=== PATIENT | male | born 1955 | race Caucasian/White ===

== ENCOUNTER 2017-01-11 20:42 | Emergency (ER) | payer BC, OTHER ==
[2017-01-11] MEDS ORDERED: Ondansetron 4 MG/2 ML SDV IVPUSH ONE (21:00)
[2017-01-11] MEDS ORDERED: Morphine 2 MG/ML Syringe IVPUSH ONE ×2 (21:00→21:38)
[2017-01-11] MEDS ORDERED: Aspirin 81 MG Tab.Chew PO ONE (21:00)
[2017-01-11] MEDS ORDERED: Ondansetron 4 MG/2 ML SDV ONE (21:13)
[2017-01-11] MEDS ORDERED: Morphine 2 MG/ML Syringe ONE ×2 (21:13→21:38)
[2017-01-11] MEDS ORDERED: Heparin Sodium 5,000 Units/ML Vial IVPUSH ONE (21:19)
--- NOTE | 2017-01-11 21:24 | EDM.PDOC ---
ED HPI GENERAL MEDICAL PROBLEM - General Stated Complaint: CHESTPAIN Time Seen by Provider: 01/11/17 20:42 Source of Information: Reports: Patient, Family History Limitations: Reports: No Limitations - History of Present Illness INITIAL COMMENTS - FREE TEXT/NARRATIVE: 61 y.o. w m with F/H of OK, High cholesterol, quit taking his "cholesterol meds " 2 weeks ago, came by PC to the ed due to acute SSCP after supper, radiating to his left chest, nausea. Pt received 4 baby ASA and pain improved. Pt rated the pain to 4/10. Pt never smoked or drank ETOH. BP 138/87 [address] ECG [address] ST elevation inf leads, no trauma. Risk factors for OK: High cholesterol, pos family Hx, brother had OK with 41 (triple bypass) Onset: Today, Sudden Onset Date: 01/11/17 Onset Time: 19:00 Duration: Minutes: Location: Reports: Chest Quality: Reports: Ache, Burning, Dull Severity: Mild Improves with: Reports: Medication Worsens with: Reports: Movement Context: Reports: Other (chest pain at rest) Associated Symptoms: Reports: Nausea/Vomiting L anterior chest & L arm Pain Score (Numeric/FACES): 7 - Related Data Allergies Allergy/AdvReac Type Severity Reaction Status Date / Time No Known Allergies Allergy Verified 01/11/17 22:05 Home Meds: Home Meds Acetaminophen/Diphenhydramine [Tylenol Pm Ex-Strength Caplet] 2 tab BEDTIME [History] ED ROS GENERAL - Review of Systems Review Of Systems: See Below Constitutional: Reports: Fatigue HEENT: Reports: No Symptoms Respiratory: Reports: No Symptoms Cardiovascular: Reports: Chest Pain Endocrine: Reports: No Symptoms GI/Abdominal: Reports: No Symptoms : Reports: No Symptoms Musculoskeletal: Reports: No Symptoms Skin: Reports: No Symptoms Neurological: Reports: No Symptoms Psychiatric: Reports: No Symptoms Hematologic/Lymphatic: Reports: No Symptoms Immunologic: Reports: No Symptoms ED EXAM, GENERAL - Physical Exam Exam: See Below Exam Limited By: No Limitations General Appearance: Alert, WD/WN, Mild Distress, Moderate Distress Eye Exam: Bilateral Eye: Normal Inspection Ears: Normal External Exam Ear Exam: Bilateral Ear: Auricle Normal Nose: Normal Inspection, Normal Mucosa Throat/Mouth: Normal Inspection, Normal Lips Head: Atraumatic, Normocephalic Neck: Normal Inspection, Supple, Non-Tender Respiratory/Chest: No Respiratory Distress, Lungs Clear Cardiovascular: Normal Peripheral Pulses, Regular Rate, Rhythm, No Edema, No JVD , No Murmur Peripheral Pulses: 1+: Femoral (L), Femoral (R) GI/Abdominal: Normal Bowel Sounds, Soft (Male) Exam: Deferred Rectal (Males) Exam: Deferred Back Exam: Normal Inspection, Full Range of Motion Extremities: Normal Inspection, Normal Range of Motion, Non-Tender, No Pedal Edema Neurological: Alert, Oriented, CN II-XII Intact, Normal Cognition, Normal Gait Psychiatric: Normal Affect, Normal Mood Skin Exam: Warm, Dry, Normal Color, No Rash Lymphatic: No Adenopathy EKG INTERPRETATION EKG Date: 01/11/17 Time: 21:00 Rhythm: NSR Rate (Beats/Min): 56 [place]: Normal P-Wave: Present QRS: Normal ST-T: Elevated (inf leads) QT: Normal Comparison: NA - No Prior EKG EKG Interpretation Comments: inf wall OK Course - Vital Signs Text/Narrative:: 61 y.o. w m with F/H of OK, High cholesterol, quit taking his "cholesterol meds " 2 weeks ago, came by PC to the ed due to acute SSCP after supper, radiating to his left chest, nausea. Pt received 4 baby ASA and pain improved. Pt rated the pain to 4/10. Pt never smoked or drank ETOH. BP 138/87 Pulse 56. ECG showed ST elevation inf leads, no trauma. Risk factors for OK: High cholesterol, pos family Hx, brother had OK with 41 (triple bypass) PE: SSCP Labs: Troponin 623 troponin 0.12 Na 133 K 4.1 BUN 21 Cr 1.0 CBC WNL Imaging: CXR NAD 9.[address] Melgar, Mission Coordinator at [facility]: 4 baby ASA and 5000 units Heparin bolus, the transfer ELIAZAR Impression: Inf wall OK Tx: ASA, MS, NS, heparin bolus Reexam: Improved Plan: Transfer to [facility] immediately Last Recorded V/S: Last Vital Signs Temp 36.4 C 01/11/17 20:54 Pulse 50 L 01/11/17 20:54 Resp 16 01/11/17 21:30 BP 130/89 01/11/17 21:30 Pulse Ox 98 01/11/17 21:30 - Orders/Labs/Meds Labs: Laboratory Tests 01/11/17 01/11/17 01/11/17 Range/Units 20:55 20:55 20:55 WBC 8.8 (4.5-12.0) X10-3/uL RBC 4.81 (4.30-5.75) x10(6)uL Hgb 14.3 (11.5-15.5) g/dL Hct 41.0 (30.0-51.3) % MCV 85.3 (80-96) fL MCH 29.8 (27.7-33.6) pg MCHC 35.0 (32.2-35.4) g/dL RDW 13.0 (11.5-15.5) % Plt Count 264 (125-369) X10(3)uL MPV 8.7 (7.4-10.4) fL Neut % (Auto) 70.8 (46-82) % Lymph % (Auto) 19.8 (13-37) % [place] % (Auto) 8.1 (4-12) % Eos % (Auto) 1 (1.0-5.0) % Baso % (Auto) 0 (0-2) % Neut # (Auto) 6.3 (1.6-8.3) # Lymph # (Auto) 1.7 (0.6-5.0) # [place] # (Auto) 0.7 (0.0-1.3) # Eos # (Auto) 0.1 (0.0-0.8) # Baso # (Auto) 0.0 (0.0-0.2) # PT (8.7-11.1) INR (0.89-1.13) APTT (24.4-33.2) SECONDS Sodium 133 L (135-145) mmol/L Potassium 4.1 (3.5-5.3) mmol/L Chloride 99 L (100-110) mmol/L Carbon Dioxide 26 (23-29) mmol/L BUN 21 (8-23) mg/dL Creatinine 1.0 (0.6-1.3) mg/dL Est Cr Clr Drug Dosing TNP Estimated GFR (MDRD) > 60 (>60) BUN/Creatinine Ratio 21.0 H (9-20) Glucose 141 H (80-116) mg/dL Calcium 9.0 (8.6-10.2) mg/dL Total Bilirubin 1.7 H (0.1-1.3) mg/dL AST 37 H (5-27) IU/L ALT 30 H (14-26) IU/L Alkaline Phosphatase 52 L (56-112) IU/L Creatine Kinase 623 H* (60-160) IU/L Troponin I 0.12 H (0.02-0.06) NG/ML Total Protein 7.3 (6.0-8.0) g/dL Albumin 4.5 (3.2-4.6) g/dL Globulin 2.8 g/dL Albumin/Globulin Ratio 1.6 01/11/17 Range/Units 20:55 WBC (4.5-12.0) X10-3/uL RBC (4.30-5.75) x10(6)uL Hgb (11.5-15.5) g/dL Hct (30.0-51.3) % MCV (80-96) fL MCH (27.7-33.6) pg MCHC (32.2-35.4) g/dL RDW (11.5-15.5) % Plt Count (125-369) X10(3)uL MPV (7.4-10.4) fL Neut % (Auto) (46-82) % Lymph % (Auto) (13-37) % [place] % (Auto) (4-12) % Eos % (Auto) (1.0-5.0) % Baso % (Auto) (0-2) % Neut # (Auto) (1.6-8.3) # Lymph # (Auto) (0.6-5.0) # [place] # (Auto) (0.0-1.3) # Eos # (Auto) (0.0-0.8) # Baso # (Auto) (0.0-0.2) # PT 11.8 H (8.7-11.1) INR 1.17 H (0.89-1.13) APTT 26.8 (24.4-33.2) SECONDS Sodium (135-145) mmol/L Potassium (3.5-5.3) mmol/L Chloride (100-110) mmol/L Carbon Dioxide (23-29) mmol/L BUN (8-23) mg/dL Creatinine (0.6-1.3) mg/dL Est Cr Clr Drug Dosing Estimated GFR (MDRD) (>60) BUN/Creatinine Ratio (9-20) Glucose (80-116) mg/dL Calcium (8.6-10.2) mg/dL Total Bilirubin (0.1-1.3) mg/dL AST (5-27) IU/L ALT (14-26) IU/L Alkaline Phosphatase (56-112) IU/L Creatine Kinase (60-160) IU/L Troponin I (0.02-0.06) NG/ML Total Protein (6.0-8.0) g/dL Albumin (3.2-4.6) g/dL Globulin g/dL Albumin/Globulin Ratio Meds: Medications Discontinued Medications Generic Name Dose Route Start Last Admin Trade Name Freq PRN Reason Stop Dose Admin Aspirin 324 mg 01/11/17 21:00 01/11/17 20:50 Aspirin PO 01/11/17 21:01 324 mg ONETIME ONE Administration Heparin Sodium (Porcine) 5,000 units 01/11/17 21:19 01/11/17 21:28 Heparin Sodium IVPUSH 01/11/17 21:20 5,000 units ONETIME ONE Administration Heparin Sodium (Porcine) Confirm 01/11/17 21:25 01/12/17 04:23 Heparin Sodium Administered 01/11/17 21:26 Not Given Dose 5,000 units .ROUTE .STK-MED ONE Sodium Chloride 1,000 mls @ 125 mls/hr 01/11/17 21:45 Normal Saline IV ASDIRECTED [facility] Morphine Sulfate Confirm 01/11/17 21:13 01/12/17 04:25 Morphine Administered 01/11/17 21:14 Not Given Dose 2 mg .ROUTE .STK-MED ONE Morphine Sulfate 2 mg 01/11/17 21:38 01/11/17 21:17 Morphine IVPUSH 01/11/17 21:39 2 mg ONETIME ONE Administration Morphine Sulfate Confirm 01/11/17 21:38 01/12/17 04:25 Morphine Administered 01/11/17 21:39 Not Given Dose 2 mg .ROUTE .STK-MED ONE Morphine Sulfate 2 mg 01/11/17 21:00 01/11/17 21:39 Morphine IVPUSH 01/11/17 21:01 2 mg ONETIME ONE Administration Ondansetron HCl Confirm 01/11/17 21:13 01/12/17 04:25 Zofran Administered 01/11/17 21:14 Not Given Dose 4 mg .ROUTE .STK-MED ONE Ondansetron HCl 4 mg 01/12/17 21:00 Zofran IVPUSH 01/12/17 21:01 ONETIME ONE Ondansetron HCl 4 mg 01/11/17 21:00 01/11/17 21:16 Zofran IVPUSH 01/11/17 21:01 4 mg ONETIME ONE Administration Sodium Chloride 10 ml 01/12/17 04:28 01/11/17 21:09 Saline Flush FLUSH 10 ml ASDIRECTED PRN Administration Keep Vein Open Departure - Departure Time of Disposition: 16:00 Disposition: DC/Tfer to Acute Hospital 02 Reason for Transfer *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
[2017-01-11] MEDS ORDERED: Heparin Sodium 5,000 Units/ML Vial ONE (21:25)
[2017-01-11] MEDS ORDERED: Sodium Chloride 0.9% 1,000 ML IV SCH (21:45)
[2017-01-12] MEDS ORDERED: Sodium Chloride 0.9% 10 ML Syringe FLUSH PRN (04:28)
[2017-01-12] MEDS ORDERED: Ondansetron 4 MG/2 ML SDV IVPUSH ONE (21:00)
--- NOTE | 2017-01-13 11:44 | CR ---
INDICATION: Chest pain. CHEST: AP upright view of the chest 01/11/2017 was compared with 02/08/2010 and revealed the heart to be normal in size and shape. The aorta is somewhat tortuous with minimal calcification suggested in the arch. An active infiltrate or effusion was not identified. Overlying EKG leads are noted. IMPRESSION: 1. No acute process. 2. ASD aorta, minimal. MTDD
== END 2017-01-11 21:43 ==
LOC: FB.ED 20:42
DX: I21.11 ST elevation (STEMI) myocardial infarction involving right coronary artery (principal); E78.00 Pure hypercholesterolemia, unspecified; Z82.49 Family history of ischemic heart disease and other diseases of the circulatory system
CPT/HCPCS: 36415; 71010; 80053; 82550; 84484; 85025; 85610; 85730; 93005; 96374; 96375; 99285; A9270; J1644; J2270; J2405; J7050

== ENCOUNTER 2019-01-08 21:04 | Emergency (ER) | payer BC ==
--- NOTE | 2019-01-08 21:38 | EDM.PDOC ---
ED HPI GENERAL MEDICAL PROBLEM - General Stated Complaint: skip beats Time Seen by Provider: 01/08/19 21:05 - History of Present Illness INITIAL COMMENTS - FREE TEXT/NARRATIVE: Patient presented to the ED because of sjip beats while resting. He denies any chest pain,dizziness,dyspnea. He just want to be checked. He admits of having a lot of stress lately and has been drinking coffee more than usual. - Related Data Allergies Allergy/AdvReac Type Severity Reaction Status Date / Time No Known Allergies Allergy Verified 01/11/17 22:05 Home Meds: Home Meds Acetaminophen/Diphenhydramine [Tylenol Pm Ex-Strength Caplet] 2 tab BEDTIME [History] Past Medical History Cardiovascular History: Reports: Bypass, High Cholesterol, Hypertension, [place], Pacemaker, Stents Other Cardiovascular History: pre-hypertensive but not on meds yet. Was on Cholesterol meds but states 'they took me off them.' Respiratory History: Reports: None Gastrointestinal History: Reports: None Genitourinary History: Reports: Other (See Below) Other Genitourinary History: prostate CA Psychiatric History: Reports: Anxiety Endocrine/Metabolic History: Reports: Other (See Below) Other Endocrine/Metabolic History: prediabetic Hematologic History: Reports: None Oncologic (Cancer) History: Reports: Prostate - Infectious Disease History Infectious Disease History: Reports: Chicken Pox, Mumps - Past Surgical History HEENT Surgical History: Reports: Adenoidectomy, Tonsillectomy Cardiovascular Surgical History: Reports: Coronary Artery Bypass GI Surgical History: Reports: Appendectomy, Cholecystectomy Male Surgical History: Reports: Prostatectomy Oncologic Surgical History: Reports: Other (See Below) Other Oncologic Surgeries/Procedures: prostate removed Social & Family History - Family History Family Medical History: Noncontributory - Tobacco Use Smoking Status *Q: Never Smoker - Caffeine Use Caffeine Use: Reports: None - Recreational Drug Use Recreational Drug Use: No ED ROS GENERAL - Review of Systems Review Of Systems: See Below Constitutional: Reports: No Symptoms HEENT: Reports: No Symptoms Respiratory: Reports: No Symptoms Cardiovascular: Reports: Other (skip beats). Denies: Chest Pain, Lightheadedness Endocrine: Reports: No Symptoms GI/Abdominal: Reports: No Symptoms Neurological: Reports: No Symptoms Psychiatric: Reports: No Symptoms Hematologic/Lymphatic: Reports: No Symptoms Immunologic: Reports: No Symptoms ED EXAM, GENERAL - Physical Exam Exam: See Below Exam Limited By: No Limitations General Appearance: Alert, No Apparent Distress Ears: Normal External Exam, Normal Canal, Hearing Grossly Normal, Normal TMs Nose: Normal Inspection, Normal Mucosa, No Blood Throat/Mouth: Normal Inspection, Normal Lips, Normal Teeth, Normal Gums, Normal Oropharynx, Normal Voice Head: Atraumatic, Normocephalic Neck: Normal Inspection, Supple, Non-Tender, Full Range of Motion Respiratory/Chest: No Respiratory Distress, Lungs Clear, Normal Breath Sounds, No Accessory Muscle Use Cardiovascular: Normal Peripheral Pulses, Regular Rate, Rhythm, No Edema, No Gallop, No JVD, No Murmur, No Rub GI/Abdominal: Normal Bowel Sounds, Soft, Non-Tender, No Organomegaly Course - Vital Signs Text/Narrative:: labs,EKG reviewed with jese and his with full understanding EKG-NSR with PVC's trop neg Last Recorded V/S: Last Vital Signs Temp 36.7 C 01/08/19 22:00 Pulse 60 01/08/19 22:00 Resp 16 01/08/19 22:00 BP 125/80 01/08/19 22:00 Pulse Ox 99 01/08/19 22:00 - Orders/Labs/Meds Orders: Active Orders 24 hr Category Date Time Status EKG Documentation Completion [RC] ASDIRECTED Care 01/08/19 21:14 Active EKG 12 Lead [EK] Routine Ther 01/08/19 21:14 Ordered Labs: Laboratory Tests 01/08/19 01/08/19 01/08/19 Range/Units 21:20 21:20 21:20 WBC 6.4 (4.5-12.0) X10-3/uL RBC 4.84 (4.30-5.75) x10(6)uL Hgb 14.0 (13.5-17.8) g/dL Hct 41.9 (30.0-51.3) % MCV 86.7 (80-96) fL MCH 29.0 (27.7-33.6) pg MCHC 33.4 (32.2-35.4) g/dL RDW 13.3 (11.5-15.5) % Plt Count 203 (125-369) X10(3)uL MPV 8.8 (7.4-10.4) fL Neut % (Auto) 52.6 (46-82) % Lymph % (Auto) 36.4 (13-37) % [place] % (Auto) 8.0 (4-12) % Eos % (Auto) 2 (1.0-5.0) % Baso % (Auto) 1 (0-2) % Neut # (Auto) 3.4 (1.6-8.3) # Lymph # (Auto) 2.3 (0.6-5.0) # [place] # (Auto) 0.5 (0.0-1.3) # Eos # (Auto) 0.1 (0.0-0.8) # Baso # (Auto) 0.1 (0.0-0.2) # Sodium 139 (135-145) mmol/L Potassium 3.9 (3.5-5.3) mmol/L Chloride 105 (100-110) mmol/L Carbon Dioxide 28 (21-32) mmol/L BUN 16 (7-18) mg/dL Creatinine 1.0 (0.70-1.30) mg/dL Est Cr Clr Drug Dosing 86.56 mL/min Estimated GFR (MDRD) > 60 (>60) BUN/Creatinine Ratio 16.0 (9-20) Glucose 98 (80-116) mg/dL Calcium 8.8 (8.6-10.2) mg/dL Troponin I < 0.017 L (<0.017-0.056) ng/mL Departure - Departure Time of Disposition: 22:15 Disposition: Home, Self-Care 01 Condition: Good Clinical Impression: Skipped heart beats, PVC (premature ventricular contraction) Instructions: Premature Ventricular Contraction Referrals: Bonnie Mcdonnell MD [Primary Care Provider] - Forms: ED Department Discharge Additional Instructions: please read discharge instructions on premature ventricular contractions(PVC) and skip beats try to drink less coffee if you're under a lot of stress do some meditation and relaxation techniques on you tube make sure that your anxiety is also properly treated. If your anxiety is not well controlled you can have PVC's - My Orders Last 24 Hours: My Active Orders 01/08/19 21:14 EKG Documentation Completion [RC] ASDIRECTED EKG 12 Lead [EK] Routine - Assessment/Plan Last 24 Hours: My Active Orders 01/08/19 21:14 EKG Documentation Completion [RC] ASDIRECTED EKG 12 Lead [EK] Routine
== END 2019-01-08 22:13 | disposition home or self-care (01) ==
LOC: FB.ED 21:04
DX: I49.3 Ventricular premature depolarization (principal); R00.8 Other abnormalities of heart beat; I10 Essential (primary) hypertension; I25.2 Old myocardial infarction
CPT/HCPCS: 36415; 80048; 84484; 85025; 93005; 99285-25

== ENCOUNTER 2020-04-16 06:40 | Emergency (ER) | payer BC, OTHER ==
[2020-04-16] MEDS ORDERED: Sodium Chloride 0.9% 1,000 ML IV ONE (07:20)
[2020-04-16] MEDS ORDERED: Morphine 2 MG/ML SYRINGE IVPUSH ONE (07:21)
[2020-04-16] MEDS ORDERED: Heparin Sodium 5,000 Units/ML Vial IVPUSH ONE (07:22)
[2020-04-16] MEDS ORDERED: Ondansetron 4 MG/2 ML SDV IVPUSH ONE (07:22)
[2020-04-16] MEDS ORDERED: Heparin Sodium/0.45% NaCl 25,000 UNITS/500 ML BAG IV SCH (07:30)
[2020-04-16] MEDS ORDERED: Nitroglycerin/D5W 25 MG/250 ML BOTTLE IV SCH (08:15)
--- NOTE | 2020-04-16 08:21 | EDM.PDOC ---
ED HPI GENERAL MEDICAL PROBLEM - General Chief Complaint: Chest Pain Stated Complaint: CHEST PAIN Time Seen by Provider: 04/16/20 07:15 Source of Information: Reports: Patient History Limitations: Reports: No Limitations - History of Present Illness INITIAL COMMENTS - FREE TEXT/NARRATIVE: c/o CP initial eval by Dr Richard, care transferred to co at 7a at change of shift c/o SSCP, crushing, 06/29 at 4:20a, awoke from sleep, took NTG SL x 3 with decrease pain 04/29 by 5:10a, given another NTG SL x 1 by EMS, pain /10 in ED, did increase slightly to 2/10 HR 60 paced in ED, low BP and no given BBs or NTG initially, however with increase pain to 2/10 and SBP 110 nitro drip started d/w Dr Bautista from ED at [facility] who accepted pt in transfer, she declined giving pt either Plavix or Brillanta, not on Plavix currently, does take ASA 81 mg/d h/o [place] 01-14-17 and given pacer and had stents x 3, returned 02-26-17 for 2 additional stents which were unsuccessful and pt had CABG x 3 at [facility] never smoked meds: nitro drip, heparin bolus and drip, ASA 325 mg PO by EMS, NTG SL x 1 by EMS CxR neg COVID pending, non-ill, on f/c/d, has not had COVID vax here with Treatments TRANSACTION MANAGER: Reports: Aspirin, Nitroglycerin CHEST Pain Score (Numeric/FACES): 4 - Related Data Allergies Allergy/AdvReac Type Severity Reaction Status Date / Time No Known Allergies Allergy Verified 04/16/20 06:46 Home Meds: Home Meds Aspirin [Adult Low Dose Aspirin EC] 81 mg PO DAILY 04/16/20 [History] Ezetimibe [Zetia] 10 mg PO DAILY 04/16/20 [History] Metoprolol Tartrate [Lopressor] 25 mg PO Q12HR 04/16/20 [History] atorvaSTATin [Lipitor] 80 mg PO BEDTIME 04/16/20 [History] buPROPion [buPROPion XL] 150 mg PO DAILY 04/16/20 [History] Past Medical History Cardiovascular History: Reports: Bypass, High Cholesterol, Hypertension, [place], Pacemaker, Stents Other Cardiovascular History: pre-hypertensive but not on meds yet. Was on Cholesterol meds but states 'they took me off them.' Respiratory History: Reports: None Gastrointestinal History: Reports: None Genitourinary History: Reports: Other (See Below) Other Genitourinary History: prostate CA Psychiatric History: Reports: Anxiety Endocrine/Metabolic History: Reports: Other (See Below) Other Endocrine/Metabolic History: prediabetic Hematologic History: Reports: None Oncologic (Cancer) History: Reports: Prostate - Infectious Disease History Infectious Disease History: Reports: Chicken Pox, Mumps - Past Surgical History HEENT Surgical History: Reports: Adenoidectomy, Tonsillectomy Cardiovascular Surgical History: Reports: Coronary Artery Bypass GI Surgical History: Reports: Appendectomy, Cholecystectomy Male Surgical History: Reports: Prostatectomy Oncologic Surgical History: Reports: Other (See Below) Other Oncologic Surgeries/Procedures: prostate removed Social & Family History - Family History Family Medical History: No Pertinent Family History - Tobacco Use Tobacco Use Status *Q: Never Tobacco User - Caffeine Use Caffeine Use: Reports: None - Recreational Drug Use Recreational Drug Use: No ED ROS GENERAL - Review of Systems Review Of Systems: See Below Constitutional: Reports: No Symptoms HEENT: Reports: No Symptoms Respiratory: Reports: No Symptoms Cardiovascular: Reports: Chest Pain Endocrine: Reports: No Symptoms GI/Abdominal: Reports: No Symptoms : Reports: No Symptoms Musculoskeletal: Reports: No Symptoms Skin: Reports: No Symptoms Neurological: Reports: No Symptoms Psychiatric: Reports: No Symptoms Hematologic/Lymphatic: Reports: No Symptoms Immunologic: Reports: No Symptoms ED EXAM, GENERAL - Physical Exam Exam: See Below Exam Limited By: No Limitations General Appearance: Alert, WD/WN, No Apparent Distress. No: Anxious Eye Exam: Bilateral Eye: EOMI, PERRL Ears: Normal External Exam Throat/Mouth: Normal Voice, No Airway Compromise Head: Atraumatic, Normocephalic Neck: Normal Inspection, Supple, Non-Tender, Full Range of Motion. No: Lymphadenopathy (R), Lymphadenopathy (L) Respiratory/Chest: No Respiratory Distress, Lungs Clear, Normal Breath Sounds, No Accessory Muscle Use, Chest Non-Tender Cardiovascular: Regular Rate, Rhythm, No Edema, No Gallop, No JVD, No Rub, Other (1/6 MAI at LSB) GI/Abdominal: Normal Bowel Sounds, Soft, Non-Tender Back Exam: Normal Inspection, Full Range of Motion, NT Extremities: Normal Inspection, Normal Range of Motion, Non-Tender, No Pedal Edema Neurological: Alert, Oriented, CN II-XII Intact, Normal Cognition, No Motor/Sensory Deficits Psychiatric: Normal Affect, Normal Mood Skin Exam: Warm, Dry, Intact, Normal Color, No Rash Lymphatic: No Adenopathy Course - Vital Signs Last Recorded V/S: Last Vital Signs Temp 36.6 C 04/16/20 06:40 Pulse 60 04/16/20 06:40 Resp 16 04/16/20 06:40 BP 116/72 04/16/20 06:40 Pulse Ox 97 04/16/20 06:40 - Orders/Labs/Meds Orders: Active Orders 24 hr Category Date Time Status EKG Documentation Completion [RC] ASDIRECTED Care 04/16/20 06:47 Active Chest 1V Frontal [CR] Stat Exams 04/16/20 06:46 Taken CORONAVIRUS COVID-19 TIFF [MOLEC] Stat Lab 04/16/20 07:20 Ordered Heparin Sodium/0.45% NaCl [Heparin 25,000 Units in 1/2 Med 04/16/20 07:30 Active NS 500 ML] 25,000 units in 500 ml IV TITRATE Nitroglycerin 25 MG in D5W @ 10 MCG/MIN(250ml) Premix Med 04/16/20 08:15 Ordered Nitroglycerin/D5W [Nitroglycerin 25 MG/D5W 250 ML] 25 mg in 250 ml IV TITRATE Sodium Chloride 0.9% [Normal Saline] 1,000 ml Med 04/16/20 07:20 Active IV .BOLUS EKG 12 Lead [EK] Routine Ther 04/16/20 06:46 Ordered Medication Orders Sodium Chloride (Normal Saline) 1,000 mls @ 999 mls/hr IV .BOLUS ONE Stop: 04/16/20 08:20 Last Admin: 04/16/20 07:40 Dose: 999 mls/hr Documented by: MAINE Heparin Sodium/Sodium Chloride (Heparin 25,000 Units In 1/2 Ns 500 Ml) 25,000 units in 500 mls @ 22.861 mls/hr IV TITRATE SHAKIRA Last Admin: 04/16/20 07:56 Dose: 12 units/kg/hr, 22.861 mls/hr Documented by: MAINE Cosigned by: JARRELL Nitroglycerin/Dextrose (Nitroglycerin 25 Mg/D5w 250 Ml) 25 mg in 250 mls @ 6 mls/hr IV TITRATE SHAKIRA; Protocol Last Admin: 04/16/20 08:09 Dose: 5 mcg/min, 3 mls/hr Documented by: MAINE Labs: Laboratory Tests 04/16/20 04/16/20 04/16/20 Range/Units 06:52 06:52 06:52 WBC 8.5 (3.2-10.1) x10-3/uL RBC 4.49 (3.90-5.90) x10(6)uL Hgb 13.1 (12.9-17.7) g/dL Hct 39.1 (38.3-50.1) % MCV 87.1 (80.8-98.7) fL MCH 29.1 (27.0-33.3) pg MCHC 33.5 (28.7-35.3) g/dL RDW 13.8 (12.4-15.0) % Plt Count 156 (117-477) x10(3)uL PT (9.0-11.1) sec INR (1.00-1.24) APTT (24.4-33.2) SECONDS Sodium 141 (135-145) mmol/L Potassium 4.1 (3.5-5.3) mmol/L Chloride 106 (100-110) mmol/L Carbon Dioxide 28 (21-32) mmol/L BUN 17 (7-18) mg/dL Creatinine 1.1 (0.70-1.30) mg/dL Est Cr Clr Drug Dosing TNP Estimated GFR (MDRD) > 60 (>60) BUN/Creatinine Ratio 15.5 (9-20) Glucose 94 (80-116) mg/dL Calcium 8.4 L (8.6-10.2) mg/dL Magnesium (1.8-2.5) mg/dL Total Bilirubin 2.3 H (0.1-1.3) mg/dL AST 30 H (5-25) IU/L ALT 39 H (12-36) U/L Alkaline Phosphatase 47 L (56-112) IU/L Troponin I 7.8 (4.0-60.3) pg/mL C-Reactive Protein (0.5-0.9) mg/dL Total Protein 6.4 (6.0-8.0) g/dL Albumin 3.7 (3.2-4.6) g/dL Globulin 2.7 g/dL Albumin/Globulin Ratio 1.4 04/16/20 04/16/20 04/16/20 Range/Units 06:52 06:52 06:52 WBC (3.2-10.1) x10-3/uL RBC (3.90-5.90) x10(6)uL Hgb (12.9-17.7) g/dL Hct (38.3-50.1) % MCV (80.8-98.7) fL MCH (27.0-33.3) pg MCHC (28.7-35.3) g/dL RDW (12.4-15.0) % Plt Count (117-477) x10(3)uL PT 11.7 H (9.0-11.1) sec INR 1.09 (1.00-1.24) APTT 26.9 (24.4-33.2) SECONDS Sodium (135-145) mmol/L Potassium (3.5-5.3) mmol/L Chloride (100-110) mmol/L Carbon Dioxide (21-32) mmol/L BUN (7-18) mg/dL Creatinine (0.70-1.30) mg/dL Est Cr Clr Drug Dosing Estimated GFR (MDRD) (>60) BUN/Creatinine Ratio (9-20) Glucose (80-116) mg/dL Calcium (8.6-10.2) mg/dL Magnesium 1.8 (1.8-2.5) mg/dL Total Bilirubin (0.1-1.3) mg/dL AST (5-25) IU/L ALT (12-36) U/L Alkaline Phosphatase (56-112) IU/L Troponin I (4.0-60.3) pg/mL C-Reactive Protein 0.4 L (0.5-0.9) mg/dL Total Protein (6.0-8.0) g/dL Albumin (3.2-4.6) g/dL Globulin g/dL Albumin/Globulin Ratio Meds: Medications Generic Name Dose Route Start Last Admin Trade Name Freq PRN Reason Stop Dose Admin Sodium Chloride 1,000 mls @ 999 mls/hr 04/16/20 07:20 04/16/20 07:40 Normal Saline IV 04/16/20 08:20 999 mls/hr .BOLUS ONE Administration Heparin Sodium/Sodium Chloride 25,000 units in 500 mls @ 22.861 mls/hr 04/16/20 07:30 04/16/20 07:56 Heparin 25,000 Units In 1/2 Ns 500 Ml IV 12 units/kg/hr TITRATE SHAKIRA 22.861 mls/hr Administration 12 UNITS/KG/HR Nitroglycerin/Dextrose 25 mg in 250 mls @ 6 mls/hr 04/16/20 08:15 04/16/20 08:09 Nitroglycerin 25 Mg/D5w 250 Ml IV 5 mcg/min TITRATE SHAKIRA 3 mls/hr Administration Protocol 10 MCG/MIN Discontinued Medications Generic Name Dose Route Start Last Admin Trade Name Freq PRN Reason Stop Dose Admin Heparin Sodium (Porcine) 4,000 units 04/16/20 07:22 04/16/20 07:47 Heparin Sodium IVPUSH 04/16/20 07:23 4,000 units ONETIME ONE Administration Morphine Sulfate 2 mg 04/16/20 07:21 04/16/20 07:44 Morphine IVPUSH 04/16/20 07:22 2 mg ONETIME ONE Administration Ondansetron HCl 4 mg 04/16/20 07:22 04/16/20 07:40 Zofran IVPUSH 04/16/20 07:23 4 mg ONETIME ONE Administration - Re-Assessments/Exams Free Text/Narrative Re-Assessment/Exam: 04/16/20 08:22 trop I neg, 7.8 (nl 4-60) 2.5h after onset of pain EKG with atrial paced rhythm shows RBBB and no ST changes c/w previous, HR 60 WBC and glucose wnl has mild inc LFTs, as he has in the past Departure - Departure Time of Disposition: 08:05 Disposition: DC/Tfer to Other Reason for Transfer *Q: Other (cardiology evaluation) Condition: Good Clinical Impression: Unstable angina, Elevated LFTs Referrals: Bonnie Mcdonnell MD [Primary Care Provider] - Sepsis Event Note (ED) - Evaluation Sepsis Screening Result: No Definite Risk - Focused Exam Vital Signs: Vital Signs Temp Pulse Resp BP Pulse Ox 04/16/20 06:40 36.6 C 60 16 116/72 97 - My Orders Last 24 Hours: My Active Orders 04/16/20 06:46 Chest 1V Frontal [CR] Stat EKG 12 Lead [EK] Routine 04/16/20 06:47 EKG Documentation Completion [RC] ASDIRECTED 04/16/20 07:20 CORONAVIRUS COVID-19 TIFF [MOLEC] Stat Sodium Chloride 0.9% [Normal Saline] 1,000 ml IV .BOLUS 04/16/20 07:30 Heparin Sodium/0.45% NaCl [Heparin 25,000 Units in 1/2 NS 500 ML] 25,000 units in 500 ml IV TITRATE 04/16/20 08:15 Nitroglycerin 25 MG in D5W @ 10 MCG/MIN(250ml) Premix Nitroglycerin/D5W [Nitroglycerin 25 MG/D5W 250 ML] 25 mg in 250 ml IV TITRATE - Assessment/Plan Last 24 Hours: My Active Orders 04/16/20 06:46 Chest 1V Frontal [CR] Stat EKG 12 Lead [EK] Routine 04/16/20 06:47 EKG Documentation Completion [RC] ASDIRECTED 04/16/20 07:20 CORONAVIRUS COVID-19 TIFF [MOLEC] Stat Sodium Chloride 0.9% [Normal Saline] 1,000 ml IV .BOLUS 04/16/20 07:30 Heparin Sodium/0.45% NaCl [Heparin 25,000 Units in 1/2 NS 500 ML] 25,000 units in 500 ml IV TITRATE 04/16/20 08:15 Nitroglycerin 25 MG in D5W @ 10 MCG/MIN(250ml) Premix Nitroglycerin/D5W [Nitroglycerin 25 MG/D5W 250 ML] 25 mg in 250 ml IV TITRATE
--- NOTE | 2020-04-16 11:45 | CR ---
INDICATION: Chest pain protocol. CHEST ONE VIEW: Two AP upright portable views of the chest were obtained 04/16/20 and compared with 01/11/17 and 02/08/10. Interval median sternotomy is noted with placement of bipolar pacemaker leads which appear to be more superior than expected. The heart was not enlarged. Overlying EKG leads are noted. A definite active infiltrate or effusion was not identified, although interstitial markings are somewhat prominent in the mid to lower lung olguin which may be on the basis of fibrosis or possibly infiltrate due to pneumonia or edema. No consolidating pneumonia or effusion was identified. The aorta is tortuous with minimal calcification in the arch. IMPRESSION: No definite acute process with findings as noted above making it difficult to exclude active interstitial disease. MTDD
== END 2020-04-16 08:57 | disposition other institution (70) ==
LOC: FB.ED 06:40
DX: I20.0 Unstable angina (principal); R79.89 Other specified abnormal findings of blood chemistry; I10 Essential (primary) hypertension; E78.00 Pure hypercholesterolemia, unspecified; I25.2 Old myocardial infarction; I45.10 Unspecified right bundle-branch block; Z79.82 Long term (current) use of aspirin; Z79.899 Other long term (current) drug therapy; Z20.822 Contact with and (suspected) exposure to COVID-19
CPT/HCPCS: 36415; 71045; 80053; 83735; 84484; 85027; 85610; 85730; 86140; 87635; 93005; 96365; 96368; 96375; 99285; J1644; J2270; J2405; J3490; J7030; U0002